=== PATIENT | female | born 1950 ===

== ENCOUNTER 2019-04-02 16:05 | Emergency (ER) | payer MEDICARE, MEDICAID ==
[~2019-04-02] VITALS: Ht 162.6 cm; Wt 61.2 kg
[2019-04-02 16:53] VITALS: BP 173/80
== END 2019-04-03 00:13 | disposition left against medical advice (07) ==
LOC: ER 16:09
DX: M79.642 Pain in left hand (principal); Z53.21 Procedure and treatment not carried out due to patient leaving prior to being seen by health care provider